=== PATIENT | male | born 1990 | race Caucasian/White ===

== ENCOUNTER → 2018-05-10 14:01 | Outpatient (CLI) | payer BC, SELFPAY ==
--- NOTE | 2018-05-10 14:20 | RAD_ITS ---
STUDY: X-RAY - CERVICAL SPINE REASON FOR EXAM: Male, 28 years old. Cervical sprain, pain since Sunday. TECHNIQUE: 5 view(s) of the cervical spine were obtained. COMPARISON: None FINDINGS: Normal anterior atlantoaxial articulation. Normal odontoid process. Normal cervical lordosis. Normal vertebral bodies and endplates. Normal disc space heights. Normal visualized intervertebral neuroforamina. The soft tissue structures are unremarkable. RAD/Cerv Spine 4 or 5 Views IMPRESSION: Normal x-ray examination of the visualized cervical spine. Electronically Signed: Timothy Huynh, at 21:57 EDT Tel , Service support ,
== END ==
PROVIDERS: Visit Provider Chiropractor
DX: S13.4XXA Sprain of ligaments of cervical spine, initial encounter (principal); X58.XXXA Exposure to other specified factors, initial encounter
CPT/HCPCS: 72050

== ENCOUNTER 2018-11-24 06:06 | Emergency (ER) | payer BC, SELFPAY ==
[2018-11-24 06:07] VITALS: BP 106/70; PULSE 92; RESP 16; TEMP 36.9; O2SAT 97; BMI 18.7
--- NOTE | 2018-11-24 06:27 | ED.VISSUMM ---
- ER Visit Summary Date of Service: 11/24/18 Chief Complaint: The flu History of Present Illness: The patient is a 28 M who presents with an influenza-like illness. He has been ill for 2 days. He complains of subjective fever and chills. He complains of some nausea. He does note congestion and rhinorrhea but there is also a chronic issue due to history of allergies. He does take Claritin every day. He also has developed a cough. No chest pain shortness of breath muscle aches joint aches headaches vomiting diarrhea sore throat. Physical Examination: Afebrile vitals are normal Patient is clinically well-appearing TMs are clear Mild posterior oropharyngeal erythema no tonsillar enlargement or exudate no uvular deviation Heart regular rate and rhythm Lungs are clear Abdomen is soft Test Results: Not indicated Emergency Department Course and Treatment: Patient's presentation is consistent with a viral syndrome. I discussed that even if this was influenza I would not recommend treatment with Tamiflu given his age and lack of comorbidities and the fact that he is greater than 48 hours out from the onset of symptoms. We discussed supportive care. He understands return for new or worsening symptoms. He was discharged. Treatment Plan: [] Disposition: Discharge Impression: Viral syndrome This note was generated with [employer] dictation software. It may contain incorrect words, spelling, and punctuation that were not noted in review of the chart prior to signing ED Disposition - Plan for ED Patient: Chief Complaint: Cold Sx Referrals: Care Physician,No Primary [Primary Care Provider] -
--- NOTE | 2018-11-24 06:29 | ED.DEP ---
ED Disposition - Plan for ED Patient: Chief Complaint: Cold Sx Instructions: ED Viral Syndrome Referrals: Care Physician,No Primary [Primary Care Provider] -
== END 2018-11-24 06:52 | disposition home or self-care (01) ==
PROVIDERS: Emergency Provider Emergency Medicine
DX: B34.9 Viral infection, unspecified (principal)

== ENCOUNTER → 2019-12-01 08:27 | Outpatient (CLI) | payer BC, SELFPAY ==
[2019-11-26 07:55] VITALS: BMI 18.3
[2019-11-26 09:18] VITALS: BMI 18.7
--- NOTE | 2019-12-01 08:32 | RAD_ITS ---
STUDY: REASON FOR EXAM: Male, 29 years old. Trouble swallowing liquids and solids; vomiting and gagging for approx. 1 week FLUOROSCOPY TIME (if supplied): ( 50 seconds ) minutes/seconds. 18 fluoroscopic spot views were obtained. TECHNIQUE: The patient ingested barium. Multiple images of the esophagus, stomach and duodenum were obtained. COMPARISON: None. FINDINGS: The esophagus is unremarkable. There is no evidence of obstruction. No mass lesion is seen. There is no evidence of gastroesophageal reflux. The patient ingested a 12 mm tablet of barium without any difficulty. The stomach and duodenum are unremarkable. There is no evidence of ulceration. No mass lesion is present. RAD/Upper GI w/BA Swallow IMPRESSION: Unremarkable air contrast examination of the esophagus and stomach. Electronically Signed: Yannick Majano, at 10:44 EST , Service support ,
== END ==
PROVIDERS: PCP Family Medicine; Referring Provider Surgery; Visit Provider Surgery
DX: R11.10 Vomiting, unspecified (principal)
CPT/HCPCS: 74246

== ENCOUNTER → 2019-12-04 12:24 | Outpatient (CLI) | payer BC, SELFPAY ==
[2019-11-26 07:55] VITALS: BMI 18.3
[2019-11-26 09:18] VITALS: BMI 18.7
--- NOTE | 2019-12-04 12:24 | NM_ITS ---
CLINICAL: 29-year-old male with reported history of dysphagia and early satiety. SEMI-SOLID PHASE 99m Tc SULFUR COLLOID GASTRIC EMPTYING STUDY COMPARISON: Upper gastrointestinal series with barium swallow report 12/01/2019 FINDINGS: The patient was administered 1.0 mCi of 99m Tc sulfur colloid mixed with oatmeal and consumed per os. Image acquisitions in the anterior-posterior projections for a total of 60 minutes. There is prompt visualization of the stomach. There is no gastroesophageal reflux identified. First order kinetics are maintained throughout the duration of the acquisitions. The T1/2 linear fit was calculated to be 62.92 minutes, (Normal: 12-56 minutes). NM/Gastric Emptying Study IMPRESSION: 1. ABNORMAL 99m Tc sulfur colloid semi-solid phase (oatmeal) gastric emptying imaging examination. A. There is mild delayed semi-solid phase gastric emptying compared to normal controls with maintained first order kinetics throughout all components of the examination. (Devonte parnell al, J Nucl Med Tech 38: 186, 2010). Electronically Signed: Timothy Ponce DO at 10:47 EST Tel , Service support ,
== END ==
PROVIDERS: PCP Family Medicine; Referring Provider Surgery; Visit Provider Surgery
DX: R11.10 Vomiting, unspecified (principal)
CPT/HCPCS: 78264; A9541

== ENCOUNTER → 2020-08-04 17:14 | Outpatient (CLI) | payer BC, SELFPAY ==
[2020-02-13 14:14] VITALS: BMI 18.7
== END ==
PROVIDERS: PCP Family Medicine; Referring Provider Nurse Practitioner Family; Visit Provider Nurse Practitioner Family
DX: Z20.828 Contact with and (suspected) exposure to other viral communicable diseases (principal)
CPT/HCPCS: 87635; C9803; U0003

== ENCOUNTER 2022-02-15 19:35 | Emergency (ER) | payer BC, SELFPAY ==
[2022-02-15 19:37] VITALS: BP 109/58; PULSE 97; RESP 15; TEMP 37.2; O2SAT 99; BMI 18.2
--- NOTE | 2022-02-15 20:04 | EDS_ITS ---
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 It persisted, about 4 hours later he went to lunch and noticed at one point that it suddenly worsened and was severe, along with developing tingling everywhere at the same time. No weakness. No falls. No recent trauma or recent illness/URI. No loss of consciousness. No nausea or vomiting. Mild photophobia. [place] it was retro-orbital bilaterally at one point but not right now. Does not usually get headaches. Denies a history of ruptured cerebral aneurysms in the family that he knows of. He is healthy otherwise and takes no prescriptions. [facility] Medical History (Updated 02/15/22 @ 21:[address] Leo Franklin MD) Back pain Episode of gagging Regurgitation of food Medical History no medical history no medical history Home Medications levofloxacin 500 mg PO DAILY #6 tab 02/15/22 [Rx Last Taken Unknown] Allergy/AdvReac Type Severity Reaction Status Date / Time amoxicillin AdvReac Hives Verified 02/15/22 19:43 Family History Mother Hypertension High cholesterol Kidney disease CVA (cerebral vascular accident) Aunt Lupus/autoimmune Surgical History No history of previous surgery Social History Smoking Status: Never smoker alcohol intake: never substance use type: does not use ROS ROS ED Constitutional Constitutional ED: Denies chills or fever(s) Eyes Eyes: Reports photophobia; Denies blurry vision, change in vision or diplopia ENT ENT ED: Denies ear pain or sore throat Cardiovascular Cardiovascular: Denies chest pain or palpitations Respiratory/Chest Respiratory/Chest: Denies cough or dyspnea Gastrointestinal Gastrointestinal: Denies abdominal pain, diarrhea, nausea or vomiting Genitourinary Genitourinary ED: Denies dysuria or urinary frequency Musculoskeletal Musculoskeletal: Denies back pain or myalgias Integumentary Denies abscess or rash Neurologic Neurologic: Reports headache(s) and paresthesias RUE, RLE, LUE and LLE; Denies abnormal hearing, abnormal movements, abnormal speech, confusion, convulsions, other visual disturbances or weakness EXAM Physical Exam Const Vital Signs: 02/15/22 19:37 02/15/22 20:36 Temperature 98.9 F Temperature Source Temporal Pulse Rate 97 72 Respiratory Rate 15 14 Blood Pressure 109/58 L 104/67 Blood Pressure Mean 75 79 Pulse Ox 99 99 Oxygen Delivery Method Room Air Room Air HEENT Reports normocephalic and moist mucous membranes atraumatic Throat: posterior oropharynx normal Eyes PERRL, EOMs intact bilaterally and conjunctivae normal Eyes Narrative: no significant photophobia Neck full ROM, No nuchal rigidity, no lymphadenopathy, supple, no meningeal signs and no carotid bruits Resp normal respiratory effort and clear to auscultation bilaterally Cardio regular rate, regular rhythm, S1 normal heart sound, S2 normal heart sound, no murmurs, no rub and peripheral pulses 2+ throughout Rate: Negative for tachycardic GI non-tender and non-distended Palpation: soft Extremity normal to inspection and full ROM Neuro oriented x3, CN's II-XII intact bilaterally, no sensory deficits noted and gait normal Gopi Coma Scale: document GCS findings Spontaneous Obeys Commands Oriented 15 Sensorium / Orientation: awake and alert Coordination / Balance: [id number] test normal, [id number] test normal and Romberg test negative Speech: speech normal Gait (Neuro): normal gait Motor Exam: strength 5/5 throughout Psych mental status grossly normal, thought process normal and cooperative Activity / Motor Behavior: avoids eye contact Mood & Affect: flat affect Skin Lesions: no lesions Rashes: no rashes MDM MDM MDM Narrative Medical decision making narrative: CT was obtained and as below, shows no intracranial abnormality but shows what appears to be acute frontal sinusitis. On reexamination, the patient does have some mild sinus tenderness in his frontal sinus areas. There are no outward signs of abscess/swelling. He does not have any fever, but the etiology of the tingling all over is questionable. Certainly it is not stroke, and it unlikely represents development of intracranial extension, but given the neurologic symptoms although he is only had symptoms for today, I will treat him empirically with antibiotics, Levaquin since he is allergic to amoxicillin. Close a patient follow-up advised. Lab Data Attestation: I reviewed the patient's lab results. Radiography Diagnostic Testing: Clinical Impression(s) from Imaging Studies Brain CT 02/15/22 20:20 IMPRESSION: 1. No acute intracranial abnormality. 2. Extensive sinus disease with possibly acute frontal sinusitis. Electronically Signed: Мария Dyer MD at 20:39 EDT , Discharge Plan Triage Chief Complaint: Numb/Ting ED Provider: Leo Franklin Dx/Rx/DC Orders Clinical Impression: Acute frontal sinusitis, Paresthesias Instructions: Causes of Sinusitis, ED Sinusitis (Antibiotic Treatment), ED Paraesthesias Prescriptions: New levofloxacin [levofloxacin] 500 MG tablet 500 mg PO DAILY Qty: 6 RF: 0 Primary Care Provider: Deepak Pham Referrals: Deepak Pham MD [Primary Care Provider] - 3-5 Days if not improving Disposition Disposition: Home, Self Care
[2022-02-15] MEDS: Metoclopramide 10 MG/2 ML Vial IM (20:07)
[2022-02-15] MEDS: Ketorolac 30 MG/ML Syringe IM (20:07)
--- NOTE | 2022-02-15 20:20 | CT_ITS ---
STUDY: CT BRAIN WITHOUT CONTRAST REASON FOR EXAM: Male, 32 years old. severe headache RADIATION DOSAGE (If Supplied By Facility): CTDIvol = ( 44.99 ) mGy, DLP = ( 812.98 ) mGycm TECHNIQUE: Transaxial CT imaging of the brain was performed without administration of intravenous contrast material. Individualized dose optimization techniques were used for this CT. COMPARISON: No relevant priors. FINDINGS: BRAIN: No acute bleed. No edema. Howard-white matter differentiation is maintained. VENTRICLES AND SULCI: Not dilated. EXTRA-AXIAL: No hemorrhage, fluid collection, or mass. CALVARIUM / SKULL BASE: Unremarkable. FACE/SINUSES: The maxillary, frontal and sphenoid sinuses and the ethmoid air cells are partially opacified, with questionable fluid levels in the frontal sinuses. SOFT TISSUES: Unremarkable. CT/Brain/Head without Contrast IMPRESSION: 1. No acute intracranial abnormality. 2. Extensive sinus disease with possibly acute frontal sinusitis. Electronically Signed: Мария Dyer MD at 20:39 EDT ,
[2022-02-15 20:36] VITALS: BP 104/67; PULSE 72; RESP 14; O2SAT 99
[2022-02-15] MEDS: levoFLOXacin 500 MG Tablet PO (21:37)
== END 2022-02-15 21:42 | disposition home or self-care (01) ==
PROVIDERS: Emergency Provider Emergency Medicine; PCP Family Medicine; Visit Provider Emergency Medicine
DX: J01.10 Acute frontal sinusitis, unspecified (principal); R20.2 Paresthesia of skin
CPT/HCPCS: 70450; 96372; 99283

== ENCOUNTER 2022-08-19 17:33 | Emergency (ER) | payer BC, SELFPAY ==
[2022-08-19 17:35] VITALS: BP 102/64; PULSE 93; RESP 16; TEMP 38.6; O2SAT 100; BMI 19.8
[2022-08-19] MEDS: Ondansetron ODT 4 MG Tablet PO (18:02)
[2022-08-19] MEDS: Acetaminophen 500 MG Tablet 1000 MG PO (18:03)
--- NOTE | 2022-08-19 18:43 | EDS_ITS ---
HPI History of Present Illness Chief Complaint: General Illness Informant: patient Narrative Narrative: Patient comes in with sense of fever nausea vomiting and tiredness. These all started within the last day. He is not coughing or short of breath. No sore throat. He states sometimes his throat gets sore but its immediately resolves by drinking water. He is always had this his whole life and it is no different. Patient also had some sore back lifting at work but this is a chronic recurrent issue. He is not complaining of back pain now. Patient vomited about midnight. He has vomited twice more today. He has been drinking water, Sprite and eating crackers. He has kept most of this down. No hematemesis. No blood in the stool. Stools have been softer but not diarrhea. No abdominal pain. PFSH [facility] Medical History Back pain Episode of gagging Regurgitation of food Home Medications ondansetron 4 mg disintegrating tablet 4 mg PO Q8H PRN nausea and vomiting #10 tabs 08/19/22 [Rx Last Taken Unknown] Allergy/AdvReac Type Severity Reaction Status Date / Time amoxicillin AdvReac Hives Verified 08/19/22 17:34 Family History Mother Hypertension High cholesterol Kidney disease CVA (cerebral vascular accident) Aunt Lupus/autoimmune Surgical History No history of previous surgery Social History Smoking Status: Never smoker alcohol intake: never substance use type: does not use ROS ROS ED Constitutional Constitutional ED: Reports chills and subjective Eyes Eyes: Denies change in vision ENT ENT ED: Denies ear pain, rhinorrhea or sore throat Cardiovascular Cardiovascular: Denies chest pain or palpitations Respiratory/Chest Respiratory/Chest: Denies cough or dyspnea Gastrointestinal Gastrointestinal: Reports diarrhea, nausea and vomiting; Denies abdominal pain, constipation or melena Genitourinary Genitourinary ED: Denies urinary frequency Musculoskeletal Musculoskeletal: Denies arthralgias or myalgias Integumentary Denies rash Neurologic Neurologic: Denies headache(s) Endocrine Endocrinology: Denies polydipsia or polyuria Hematologic/Lymphatic Hematologic/Lymphatic: Denies easy bleeding, easy bruising or lymphadenopathy Allergic/Immunologic Allergic/Immunologic ED: Denies urticaria EXAM Physical Exam Const Vital Signs: 08/19/22 17:35 08/19/22 17:42 08/19/22 19:17 Temperature 101.5 F H Temperature Source Temporal Pulse Rate 93 Respiratory Rate 16 18 Respiratory Effort Normal Non-Labored Respiratory Pattern Normal Blood Pressure 102/64 95/55 L Blood Pressure Mean 76 68 Pulse Ox 100 100 Oxygen Delivery Method Room Air Room Air 08/19/22 19:38 Temperature Temperature Source Pulse Rate 84 Respiratory Rate 18 Respiratory Effort Respiratory Pattern Blood Pressure 96/58 L Blood Pressure Mean 70 Pulse Ox 98 Oxygen Delivery Method Room Air Positive well nourished and well developed General Appearance ED: well developed and NAD; Negative for cyanotic or diaphoretic HEENT Reports moist mucous membranes Eyes EOMs intact bilaterally General Eye ED: Negative for pale conjunctiva or scleral icterus Neck supple Resp normal respiratory effort and clear to auscultation bilaterally Effort and Inspection: Negative for pain with movement Auscultation: Negative for rales, rhonchi or wheezes Cardio regular rate and regular rhythm GI normal to inspection, nondistended, normoactive bowel sounds, non-tender and non-distended GI Narrative: No tenderness at all on exam. Bowel sounds are normal. Back/Spine no CVA tenderness Extremity normal to inspection Neuro Sensorium / Orientation: alert Psych mental status grossly normal Skin no rashes or lesions noted MDM MDM MDM Narrative Medical decision making narrative: Patient is COVID-positive. Clinically is well-hydrated. He feels better now. He is drinking fluids and eating. I do not think he needs any therapy. He is overall healthy male. We will get him Zofran to control the nausea. We discussed reasons to return. His oxygen saturation is 98 to 100% on room air a nd he is having no pulmonary symptoms. Lab Data Attestation: I reviewed the patient's lab results. Discharge Plan Triage Chief Complaint: General Illness ED Provider: Mike Hall Dx/Rx/DC Orders Clinical Impression: COVID, Nausea & vomiting Instructions: Coronavirus Disease 2019 (COVID-19): Caring for Yourself or Others, ED Vomiting (Adult) Prescriptions: New ondansetron 4 mg tablet,disintegrating 4 mg PO Q8H PRN (Reason: nausea and vomiting) Qty: 10 0RF Primary Care Provider: Deepak Pham Referrals: Joe Fox DO [Non-Staff] - 1 Week if not improving Deepak Pham MD [Primary Care Provider] - Disposition Disposition: Home, Self Care
[2022-08-19 19:17] VITALS: BP 95/55; RESP 18; O2SAT 100
[2022-08-19 19:38] VITALS: BP 96/58; PULSE 84; RESP 18; O2SAT 98
== END 2022-08-19 20:11 | disposition home or self-care (01) ==
PROVIDERS: Emergency Provider Emergency Medicine; PCP Family Medicine; Visit Provider Emergency Medicine
DX: U07.1 COVID-19 (principal); R11.2 Nausea with vomiting, unspecified
CPT/HCPCS: 87811; 99283

== ENCOUNTER → 2022-09-27 | Outpatient (CLI) | payer BC, SELFPAY ==
--- NOTE | 2022-09-27 15:12 | NEURO_ITS ---
NCS and/or EMG Patient Report Ordering Doctor: Deepak Pham DATE OF SERVICE: 09/27/22 Kevin presents electrodiagnostic testing of the upper limbs. He reports numbness and tingling in both hands. Electrodiagnostic findings: Right median motor nerve demonstrates normal distal latency and amplitude with reduced conduction velocity. Left median motor nerve demonstrates normal distal latency and amplitude with reduced conduction velocity. Ulnar motor response is normal bilaterally. Prolonged right median s ensory latency at the wrist. Normal left median sensory latency. Normal ulnar and radial sensory responses. On needle EMG, 1+ fibrillations noted in the left first dorsal interosseous. Electrodiagnostic impression: This is an abnormal study in the upper limbs 1. Electrodiagnostic findings suggestive of bilateral median mononeuropathy. This consistent with a mild bilateral carpal tunnel syndrome. 2. There is no electrodiagnostic evidence for cervical radiculopathy.
== END | disposition home or self-care (01) ==
LOC: PSN 13:52
PROVIDERS: PCP Family Medicine; Visit Provider Family Medicine
DX: R20.0 Anesthesia of skin (principal); R20.2 Paresthesia of skin
CPT/HCPCS: 95886; 95913

== ENCOUNTER 2024-01-14 19:34 | Emergency (ER) | payer BC, SELFPAY ==
[2024-01-14 19:35] VITALS: BP 103/69; PULSE 91; RESP 14; TEMP 36.1; O2SAT 98; BMI 43.2
--- NOTE | 2024-01-14 20:12 | EDS_ITS ---
HPI History of Present Illness Chief Complaint: Upper Extremity Injury Informant: patient Narrative Narrative: Patient presenting with right long finger distal fingertip pain swelling and redness. Patient is concerned for infection. He has no problem moving the fingers. He works extensively with his hands. [facility] Medical History Back pain Episode of gagging Regurgitation of food Home Medications ondansetron 4 mg disintegrating tablet 4 mg PO Q8H PRN nausea and vomiting #10 tabs 08/19/22 [Rx Last Taken Unknown] cephalexin 500 mg capsule 500 mg PO 3XD 7 days #21 CAPSULES 01/14/24 [Rx Last Taken Unknown] Allergy/AdvReac Type Severity Reaction Status Date / Time amoxicillin AdvReac Hives Verified 01/14/24 19:35 Family History Mother Hypertension High cholesterol Kidney disease CVA (cerebral vascular accident) Aunt Lupus/autoimmune Surgical History No history of previous surgery Social History Smoking Status: Never smoker alcohol intake: never substance use type: does not use ROS ROS ED Constitutional Constitutional ED: Denies chills or weight loss Eyes Eyes: Denies change in vision or diplopia ENT ENT ED: Denies ear pain, rhinorrhea or sore throat Cardiovascular Cardiovascular: Denies chest pain, orthopnea, palpitations or racing heartbeat Respiratory/Chest Respiratory/Chest: Denies cough, dyspnea or orthopnea Gastrointestinal Gastrointestinal: Denies abdominal pain, diarrhea, nausea or vomiting Genitourinary Genitourinary ED: Denies dysuria, hematuria or urinary frequency Musculoskeletal Musculoskeletal: Reports other Details: See history of present ; Denies arthralgias or myalgias Integumentary Reports abscess and other Details: See history of present ; Denies rash Neurologic Neurologic: Denies headache(s) or weakness Psychiatric Psychiatric: Denies anxiety, depression, suicidal ideation or suicidal thoughts Endocrine Endocrinology: Denies polydipsia, polyphagia or polyuria Allergic/Immunologic Allergic/Immunologic ED: Denies mouth swelling, tongue swelling or urticaria EXAM Physical Exam Const Vital Signs: 01/14/24 19:35 Temperature 97 F L Temperature Source Temporal Pulse Rate 91 Respiratory Rate 14 Blood Pressure 103/69 Blood Pressure Mean 80 Pulse Ox 98 Oxygen Delivery Method Room Air Positive well nourished and well developed General Appearance ED: well developed HEENT Reports normocephalic, head/scalp atraumatic and moist mucous membranes Eyes PERRL and EOMs intact bilaterally Neck no lymphadenopathy, supple and no JVD Resp normal respiratory effort and clear to auscultation bilaterally Cardio regular rate, regular rhythm and no murmurs GI normal to inspection, nondistended, normoactive bowel sounds and non-tender Palpation: soft Back/Spine no CVA tenderness and normal ROM Extremity Extremity Narrative: Right long finger demonstrates swelling and erythema over the lateral aspect of the cuticle. There is no obvious felon. There is no obvious tenosynovitis. There is some fluctuance along the cuticle skin. The nail itself appears uninjured. General Extremety ED: Negative for edema General Extremity: Negative for edema Neuro oriented x3 and CN's II-XII intact bilaterally Sensorium / Orientation: alert Motor Exam: strength 5/5 throughout Psych mental status grossly normal Mood & Affect: Negative for depressed or tearful Skin no rashes or lesions noted and no wounds MDM MDM MDM Narrative Medical decision making narrative: This appears to be a paronychia a simple and uncomplicated. I do not see evidence of felon or deep space infection such as tenosynovitis. I doubt that this would be osteomyelitis as this is only been going on for about 2 days. The finger nail and cuticle was washed with alcohol prep pad and allowed to dry. An 18-gauge needle was used to slide just underneath the cuticle at the point of maximal fluctuance. A linear incision was made with the bevel and the needle was withdrawn. A large amount of pus was expressed from the area. It was then dressed with bacitracin and Band-Aid. Patient will be placed on Keflex. Local wound care discussed with patient including warm soapy water soaks and follow-up return if worsening or concerns History & Record Review Discussion w/independent historian: Patient Discharge Plan Triage Chief Complaint: Upper Extremity Injury ED Provider: [facility] Dx/Rx/DC Orders Clinical Impression: Paronychia of finger Instructions: ED Paronychia of the Finger or Toe Prescriptions: New cephalexin [cephalexin] 500 mg capsule 500 mg PO 3XD 7 Days Qty: 21 0RF No Action ondansetron 4 mg tablet,disintegrating 4 mg PO Q8H PRN (Reason: nausea and vomiting) Qty: 10 0RF Primary Care Provider: Deepak Pham Referrals: Deepak Pham MD [Primary Care Provider] - 3-5 Days if not improving Disposition Disposition: Home, Self Care Discharge Date/Time: 01/14/24 20:25
[2024-01-14] MEDS: Cephalexin 250 MG Capsule 500 MG PO (20:21)
[2024-01-14 20:23] VITALS: BP 110/69; PULSE 80; RESP 16; TEMP 36.6; O2SAT 99
== END 2024-01-14 20:25 | disposition home or self-care (01) ==
PROVIDERS: Emergency Provider Emergency Medicine; PCP Family Medicine; Visit Provider Emergency Medicine
DX: L03.011 Cellulitis of right finger (principal)
CPT/HCPCS: 99282

== ENCOUNTER 2025-03-11 15:48 | Emergency (ER) | payer SELFPAY ==
[2025-03-11 15:48] VITALS: BP 105/77; PULSE 74; RESP 16; TEMP 36.4; O2SAT 99; BMI 21.4
[2025-03-11 16:08] VITALS: O2SAT 96
[2025-03-11] MEDS: Acetaminophen 500 MG Tablet 1000 MG PO (16:35)
--- NOTE | 2025-03-11 16:35 | RAD_ITS ---
PROCEDURE: WRIST MIN 3 VIEWS 03/11/2025 REASON FOR EXAM: INJURY TECHNIQUE: Three-view left wrist series. COMPARISON: None. RAD/Wrist min 3 Views IMPRESSION: No significant degree of ulnar variance is noted. Satisfactory carpal alignment is seen throughout. No arthritic process is seen. No acute fracture or dislocation is noted. If clinical concern persists, short-term follow-up imaging may be obtained to r ule out a currently occult fracture. Reading Location: [place] [id number]
--- NOTE | 2025-03-11 16:35 | RAD_ITS ---
PROCEDURE: WRIST MIN 3 VIEWS 03/11/2025 REASON FOR EXAM: INJURY TECHNIQUE: Three-view right wrist COMPARISON: None. RAD/Wrist min 3 Views IMPRESSION: No arthritic process or joint narrowing is seen. No significant ulnar variance is noted. Satisfactory carpal alignment is seen. No acute fracture or dislocation is noted. If clinical concern persists, short-term follow-up imaging may be obtained to r ule out a currently occult fracture. Reading Location: [place] [id number]
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
[2025-03-11 17:59] VITALS: BP 112/72; PULSE 74; RESP 16; TEMP 36.7; O2SAT 96
== END 2025-03-11 18:02 | disposition home or self-care (01) ==
PROVIDERS: Emergency Provider Emergency Medicine; PCP Family Medicine; Visit Provider Emergency Medicine
DX: S06.0X0A Concussion without loss of consciousness, initial encounter (principal); S16.1XXA Strain of muscle, fascia and tendon at neck level, initial encounter; S63.501A Unspecified sprain of right wrist, initial encounter; S63.502A Unspecified sprain of left wrist, initial encounter; V43.52XA Car driver injured in collision with other type car in traffic accident, initial encounter
CPT/HCPCS: 73110; 99282